=== PATIENT | male | born 1940 | race Caucasian/White ===

== ENCOUNTER 2018-10-18 17:39 | Emergency (ER) | payer MEDICARE ==
[~2018-10-18] VITALS: Ht 170.2 cm; Wt 70.0 kg
[2018-10-18 17:43] VITALS: Ht 170.2 cm; Wt 70.0 kg
[2018-10-18] MEDS ORDERED: DIPHTH/TET/ACEL PERTUSS (ADULT) 0.5 ML VIAL IM* ONE (18:00)
[2018-10-18] MEDS ORDERED: LIDOCAINE 2%/EPI (MDV) 20ML INJ INJ ONE (18:00)
[2018-10-18] MEDS ORDERED: BACI28.34 TOP (20:06)
[2018-10-18] MEDS ORDERED: SULF1TAB31 PO (20:06)
[2018-10-18] MEDS ORDERED: CEPH-443 PO (20:06)
--- NOTE | 2018-10-18 20:32 | ERD ---
ER Documentation Chief Complaint Chief Complaint BIB RA FOR EVAL OF LAC TO RT LEG, CUT BY METAL PIECE IN TUB HPI 78-year-old male presenting to the emergency department complaining of lacer ation to the right anterior orozco which occurred just prior to arrival. He was brought in by ambulance and his family. Patient states he was getting into the shower when he accidentally hit his right orozco against the metal railing of the shower door. He reports mild associated pain which is constant and worse with movement. His tetanus is not up-to-date. He denies any head injury, loss of consciousness, fevers, chills, or other symptoms at this time. ROS All systems reviewed and are negative except as per history of present illness. Medications Home Meds Active Scripts Bacitracin* (Bacitracin Zinc Oint*) 28.35 Gm Oint, 1 APPLIC TOP BID, #1 TUB APPLI TO Prov:DANN GORDON PA-C 10/18/18 Sulfamethoxazole/Trimethoprim* (Bactrim Ds* Tablet) 1 Each Tablet, 1 TAB PO BID, #14 TAB Prov:DANN GORDON PA-C 10/18/18 Cephalexin* (Keflex*) 500 Mg Capsule, 500 MG PO QID for 7 Days, CAP Prov:DANN GORDON PA-C 10/18/18 Allergies Allergies: Coded Allergies: No Known Allergy (Unverified , 10/18/18) PMhx/Soc History of Surgery: Yes (AAA repair, back, femoral bilateral bipass) Anesthesia Reaction: No Hx Neurological Disorder: No Hx Respiratory Disorders: Yes (COPD, CHF) Hx Cardiac Disorders: Yes (CHF, COPD) Hx Psychiatric Problems: No Hx Miscellaneous Medical Probl: No Hx Alcohol Use: Yes (Daily) Hx Substance Use: No Hx Tobacco Use: No Smoking Status: Never smoker FmHx Family History: No diabetes Physical Exam Vitals Vital Signs Date Temp Pulse Resp B/P (MAP) Pulse Ox O2 O2 Flow FiO2 Time Delivery Rate 10/18/18 97.9 77 16 140/68 100 17:43 (92) Physical Exam Const: No acute distress Head: Atraumatic Eyes: Normal Conjunctiva ENT: Normal External Ears, Nose and Mouth. Neck: Full range of motion. No meningismus. Resp: Clear to auscultation bilaterally Cardio: Regular rate and rhythm, no murmurs Skin: No petechiae or rashes Back: No midline or flank tenderness Ext: Is an approximate 6 inch laceration noted to the right anterior orozco with no obvious foreign body. There is active bleeding noted. Patient is neur ovascularly intact distally. Neur: Awake and alert Psych: Normal Mood and Affect Results 24 hrs Current Medications Medications Dose Sig/Chip Start Time Status Last (Trade) Ordered Route PRN Stop Time Admin Dose Reason Admin Diphtheria/ 0.5 ml ONCE ONCE 10/18/18 DC 10/18/18 Tetanus/Acell IM* 18:00 18:19 Pertussis 10/18/18 18:01 (Adacel) Lidocaine/ 20 ml ONCE ONCE 10/18/18 DC 10/18/18 Epinephrine INJ 18:00 18:18 (Xylocaine 10/18/18 18:01 2%/ Epi (Mdv) 20 ml) [place] [address] Radiology Main Line: [phone] DIAGNOSTIC IMAGING REPORT Patient: SHARIFA SANDERS : 1940 Age: 78 Sex: M MR #: [id number] DOS: 10/18/18 0000 Ordering MD: DANN GORDON PA-C Location: [facility] Room/Bed: PROCEDURE: X-ray right leg. CLINICAL INDICATION: Laceration to the right leg. TECHNIQUE: AP and lateral views of the right tibia and fibula. COMPARISON: None. FINDINGS: Soft tissue injuries are seen at the anterior medial aspect of the right tibia, without evident retained radiopaque foreign material. No acute fracture dislocation. Vascular calcifications. Soft tissue swelling over the region of the ankle. IMPRESSION: 1. Soft tissue injuries at the right leg, without evident retained radiopaque foreign material in the region of injury. 2. No evident acute fracture. RPTAT: [facility] Physician Jessica Date Time Electronically viewed and signed by Physician Jessica on 10/18/2018 19:18 RS/ CC: DANN GORDON PA-C [id number] Procedures/MDM 78-year-old male presenting to the emergency department complaining of laceration to the right orozco which he sustained just prior to arrival. Patient was explained the full risks, benefits, alternatives to laceration repair with sutures and Steri-Strips. He gave verbal consent. Laceration Repair by me: Anesthesia: 1% lidocaine locally Location: Right anterior orozco Tendon/Joint/Nerves: No injury Foreign body: None detected after copious irrigation and exploration Technique: Simple Interrupted Sutures Complexity: No subcutaneous sutures/mucosal repair/edge excision Post Closure Length: 6 inches Patient's bleeding was easily controlled in the department and there is no indication of anemia. No evidence of compartment syndrome, neurologic injury, vascular injury, open joint, tendon laceration, or foreign body. Patient is appropriate for outpatient follow up. 48 hour wound check. Scar minimization instructions given. No evidence of life-threatening pathology at time of discharge. Pt/family in agreement with discharge plan/diagnosis. Pt/family advised to return immediately with any new or worsening symptoms. Follow-up with primary care physician within the next 1-2 days. Departure Diagnosis: Primary Impression: Laceration of right lower extremity Encounter type: initial encounter Qualified Codes: S81.811A - Laceration without foreign body, right lower leg, initial encounter Condition: Fair Patient Instructions: Laceration, Extrem (Suture, Staple, Or Tape) Referrals: [facility] YOU HAVE RECEIVED A MEDICAL SCREENING EXAM AND THE RESULTS INDICATE THAT YOU DO NOT HAVE A CONDITION THAT REQUIRES URGENT TREATMENT IN THE EMERGENCY DEPARTMENT. FURTHER EVALUATION AND TREATMENT OF YOUR CONDITION CAN WAIT UNTIL YOU ARE SEEN IN YOUR DOCTORS OFFICE WITHIN THE NEXT 1-2 DAYS. IT IS YOUR RESPONSIBILITY TO MAKE AN APPOINTMENT FOR [facility]. IF YOU HAVE A PRIMARY DOCTOR --you should call your primary doctor and schedule an appointment IF YOU DO NOT HAVE A PRIMARY DOCTOR YOU CAN CALL OUR PHYSICIAN REFERRAL HOTLINE AT IF YOU CAN NOT AFFORD TO SEE A PHYSICIAN YOU CAN CHOSE FROM THE FOLLOWING [facility] [address] [facility] [address] [facility]. [facility] [address] [facility] [address] [facility]. [facility] [address] [facility] Additional Instructions: Return to this facility in 2 DAYS for a follow-up exam.Return sooner if your condition worsens. Follow up with your physician to remove the stitches:For Face wounds 5-7 days.For Elsewhere on the body 7-10 days. DANN GORDON PA-C October 18, 2018 20:32
[2018-10-18 20:55] VITALS: BP 139/61; PULSE 89; RESP 16
== END 2018-10-18 20:55 | disposition home or self-care (01) ==
LOC: FTE 17:39
DX: S81.811A Laceration without foreign body, right lower leg, initial encounter (principal); J44.9 Chronic obstructive pulmonary disease, unspecified; I50.9 Heart failure, unspecified; W26.8XXA Contact with other sharp object(s), not elsewhere classified, initial encounter; Y92.9 Unspecified place or not applicable; Z23 Encounter for immunization
CPT/HCPCS: 73590; 90471; 90715